=== PATIENT | male | born 1995 | race Caucasian/White ===

== ENCOUNTER 2016-03-24 12:03 | Emergency (ER) | payer OTHER ==
[2016-03-24] MEDS ORDERED: ONDANSETRON 4MG/2ML VIAL (J2405) As Ordered ONE (12:28)
[2016-03-24] MEDS ORDERED: ACETAMINOPHEN 325 MG TAB As Ordered ONE (12:28)
[2016-03-24] MEDS ORDERED: GASTROGRAFIN SOLUTION 30ML (Q9963) As Ordered ONE (12:30)
[2016-03-24 12:59] LABS: BASO # 0.1 K/mm3 (0.0-0.2); BASO % 0.8 % (0.0-1.0); EOS # 0.1 K/mm3 (0.0-0.50); EOS % 0.7 % (0.0-3.0); LARGE UNSTAINED CELL # 0.2 K/mm3 (0.0-0.4); LARGE UNSTAINED CELL % 1.9 % (0.0-4.0); MEAN CORPUSCULAR HEMOGLOBIN 26.4 pg (27.0-33.0); MEAN CORPUSCULAR HGB CONC 34.2 g/dl (32.0-36.5); MEAN CORPUSCULAR VOLUME 77.3 fl (80.0-96.0); MONO # 0.8 K/mm3 (0.0-0.8); MONO % 6.6 % (0.0-5.0); NEUTROPHILS # 10.3 K/mm3 (1.8-7.7); PLATELET COUNT, AUTOMATED 201 k/mm3 (150-450); RED CELL DISTRIBUTION WIDTH 14.9 % (11.5-14.5); WHITE BLOOD COUNT 12.2 K/mm3 (4.0-10.0)
[2016-03-24 13:08] LABS: CONTROL LINE MONO INT CTR LINE PRESENT
[2016-03-24 13:16] LABS: ALBUMIN 3.8 GM/DL (3.2-5.2); ALKALINE PHOSPHATASE 103 U/L (45-117); ALT/SGPT 21 U/L (12-78); ANION GAP 8 MEQ/L (8-16); AST/SGOT 22 U/L (15-37); BILIRUBIN,DIRECT 0.2 MG/DL (0.0-0.2); BILIRUBIN,TOTAL 0.8 MG/DL (0.2-1.0); BLOOD UREA NITROGEN 13 MG/DL (7-18); CALCIUM LEVEL 8.6 MG/DL (8.5-10.1); CARBON DIOXIDE LEVEL 28 MEQ/L (21-32); CHLORIDE LEVEL 102 MEQ/L (98-107); CREATININE FOR GFR 1.42 MG/DL (0.70-1.30); GLUCOSE, FASTING 95 MG/DL (70-105); SODIUM LEVEL 138 MEQ/L (136-145)
[2016-03-24] MEDS ORDERED: ISOVUE-370 76% 100ML VIAL (Q9967) As Ordered ONE (13:51)
--- NOTE | 2016-03-24 16:47 | EDDOCDS ---
Nurse's Notes [facility] Name: Raghu Monique Age: 21 yrs Sex: Male : 1995 Arrival Date: 03/24/2016 Time: 12:03 Bed I9 / Private [facility] Diagnosis: Nausea and vomiting;Diarrhea, unspecified Presentation: 03/24 12:07 Presenting complaint: Patient states: Sore throat, nausea, vomiting and diarrhea, dwg symptoms for 2 days. Adult Sepsis Screening: The patient does not have new or worsening altered mentation. Patient's respiratory rate is less than 22. Systolic blood pressure is greater than 100. Patient has a qSOFA score of 0- Negative Sepsis Screen. Suicide/Homicide risk assessment- the patient denies having any suicidal and/or homicidal ideations and does not present with any other emotional, behavioral or mental health complaints. Status: The patient is an active duty financial services rep. Transition of care: patient was not received from another setting of care. 12:07 Acuity: HERIBERTO Level 3 dwg 12:07 Method Of Arrival: Walkin/Carried/Asstd dwg Triage Assessment: 12:09 General: Appears in no apparent distress. Pain: Pain currently is 8 out of 10 on a pain dwg scale. Pt Declines HIV testing. Historical: - Allergies: no known allergies; - Home Meds: 1. OTC cold meds (Last dose: 03/23/2016 19:00) 2. Advil 200 mg Oral tab 2 tabs as needed (Last dose: 03/24/2016 01:00) - PMHx: none; - PSHx: Repair of testicular torsion 2005; - Social history: Smoking status: Patient states was never smoker of tobacco. No barriers to communication noted, The patient speaks fluent Telugu. - Family history: Not pertinent. - : The pt / caregiver states he / she is not on anticoagulants. Home medication list is obtained from the patient. - Exposure Risk Screening:: None identified. Screenin:09 Screening information is obtained from the patient. Fall risk: No risks identified. ttb Assistance ADL's: requires no assistance with activities of daily living. Abuse/DV Screen: The patient / caregiver reports he/she is: not in a situation that causes fear, pain or injury. Nutritional screening: No deficits noted. Advance Directives: Currently, there is no health care proxy. home support is adequate. Assessment: 13:36 General: pt states he is unable to give urine sample at this time.... ttb 14:09 General: pt returned from CT. NAD noted.. Neurological: Level of Consciousness is ttb awake, alert. Cardiovascular: Chest pain is denied. Respiratory: Airway is patent Respiratory effort is even, unlabored. GI: Abdomen is flat. Derm: Skin is normal. 15:57 General: Appears in no apparent distress, comfortable, well nourished, well groomed, ms18 Behavior is appropriate for age, cooperative, pleasant. General: Pt in no acute distress. Awaiting CT results at this time. Pain: Location: head Pain currently is 4 out of 10 on a pain scale. Neurological: Level of Consciousness is awake, alert, obeys commands, Oriented to person, place, time, Speech is normal, Facial symmetry appears normal. Respiratory: Airway is patent Respiratory effort is even, unlabored. GI: Bowel sounds present X 4 quads. Abd is soft X 4 quads. Derm: Skin is pink, warm & dry. 16:00 Reassessment: Patient appears in no apparent distress at this time. Patient denies pain ttb at this time. Patient states feeling better. Patient states symptoms have improved. pt states he is comfortable going home at this time.. Adult Sepsis Screening: The patient does not have new or worsening altered mentation. Patient's respiratory rate is less than 22. Systolic blood pressure is greater than 100. Patient has a qSOFA score of 0- Negative Sepsis Screen. 16:00 General: Appears in no apparent distress, comfortable. Neurological: Level of ttb Consciousness is awake, alert. 16:44 General: Appears in no apparent distress, comfortable, Behavior is appropriate for age, ttb pleasant. Neurological: Level of Consciousness is awake, alert. Respiratory: No deficits noted. Airway is patent. GI: Denies nausea, vomiting. Vital Signs: 12:04 BP 131 / 78; Pulse 123; Resp 18 S; Temp 101.9(O); Pulse Ox 100% on R/A; Weight 78.47 kg dd6 (R); Height 5 ft. 10 in. (177.80 cm) (R); 15:56 BP 136 / 63; Pulse 78; Resp 20; Temp 99.9(O); Pulse Ox 99% on R/A; Pain 0/10; bnb 12:04 Body Mass Index 24.82 (78.47 kg, 177.80 cm) dd6 Vitals: 12:04 Log In Time: March 24, 2016 at 12:02. dd6 12:59 Strep Screen is obtained and tested: Negative, a GATSNEG culture is ordered in [facility] ms18 and sent. ED Course: 12:04 Patient visited by Iban Oglesby PCA. dd6 12:04 [facility] is Private Physician. dd6 12:04 Patient moved to Waiting dd6 12:06 Patient moved to Pre RCE dd6 12:08 Triage Initiated dwg 12:11 Mynor Mcintyre MD is Attending Physician. br1 12:11 Patient moved to I ct3 12:23 Patient visited by Mynor Mcintyre MD. br1 12:59 Patient visited by Janeen Harkins RN. ms18 13:15 -Influenza A&B Rapid Antigen - Nose Sent. ms18 13:36 Patient visited by Wendy Vazquez RN. ttb 13:55 Patient visited by Barbara Jean Baptiste PCA. bnb 14:01 Patient visited by Barbara Jean Baptiste PCA. bnb 14:01 Urine Culture Sent. bnb 14:01 Urinalysis Sent. bnb 14:01 Urine collected. Clean catch specimen. bnb 14:09 Patient visited by Wendy Vazquez RN. ttb 14:09 The patient / caregiver is instructed regarding the plan of care and ED course. Patient ttb has correct armband on for positive identification. 14:09 Inserted peripheral IV: 20gauge IV in left antecubital area and blood collected. ttb Patient tolerated the procedure well. by Janeen Benitez RN. Labs drawn. (by ED staff). 14:11 Patient visited by Wendy Vazquez RN. ttb 14:26 Patient name changed from Raghu\S\\S\Eneida\S\ to Raghu\S\Kirt\S\Eneida. EDMS 14:27 [id number] Payment Agreement was scanned into [employer] and attached to record. lg 14:45 Patient visited by Kenisha Heaton RN. jjr 15:47 Patient visited by Dominic Landaverde. jml1 15:57 Patient visited by Barbara Jean Baptiste PCA. bnb 16:28 Patient visited by Mynor Mcintyre MD. br1 16:31 [facility] is Referral Physician. br1 16:44 Discontinued IV lock intact, bleeding controlled, pressure dressing applied, No ttb redness/swelling at site. No procedures done that require assistance. Administered Medications: 12:45 Drug: Diatrizoate Meglumine & Sodium 10 ml [diatrizoate meglumine and diat.sodium 66 ms18 %-10 % oral solution (10 mL)] Route: PO; 15:55 Follow up: Response: No Adverse Reaction ms18 12:59 Drug: Acetaminophen 650 mg [acetaminophen 325 mg tablet (2 tabs)] Route: PO; ms18 12:59 Drug: NS 0.9% 1000 ml [sodium chloride 0.9 % intravenous solution] Route: IV; Rate: ms18 bolus; Site: left antecubital; 15:55 Follow up: IV Status: Completed infusion; IV Intake: 1000ml ms18 12:59 Drug: Ondansetron 4 mg [ondansetron HCl 2 mg/mL intravenous solution (2 mL)] Route: ms18 IVP; Site: left antecubital; 16:45 Follow up: Response: Nausea is resolved; No Adverse Reaction ttb 13:15 Drug: Diatrizoate Meglumine & Sodium 10 ml [diatrizoate meglumine and diat.sodium 66 ms18 %-10 % oral solution (10 mL)] Route: PO; 15:56 Follow up: Response: No Adverse Reaction ms18 15:55 Drug: NS 0.9% 1000 ml [sodium chloride 0.9 % intravenous solution] Route: IV; Rate: ms18 bolus; Site: left antecubital; 16:45 Follow up: Response: Nausea is resolved; No Adverse Reaction; IV Status: Completed ttb infusion; IV Intake: 700ml Intake: 15:55 IV: 1000.00ml; Total: 1000.00ml. ms18 16:45 IV: 700.00ml; Total: 1700.00ml. ttb Order Results: Lab Order: CBC with Diff; SPEC'M 03/24/16 12:50 Test: WHITE BLOOD COUNT; Value: 12.2; Range: 4.0-10.0; Abnormal: Above high normal; Units: K/mm3; Status: F Test: RED BLOOD COUNT; Value: 5.48; Range: 4.30-6.10; Units: M/mm3; Status: F Test: HEMOGLOBIN; Value: 14.5; Range: 14.0-18.0; Units: g/dl; Status: F Test: HEMATOCRIT; Value: 42.4; Range: 42.0-52.0; Units: %; Status: F Test: MEAN CORPUSCULAR VOLUME; Value: 77.3; Range: 80.0-96.0; Abnormal: Below low normal; Units: fl; Status: F Test: MEAN CORPUSCULAR HEMOGLOBIN; Value: 26.4; Range: 27.0-33.0; Abnormal: Below low normal; Units: pg; Status: F Test: MEAN CORPUSCULAR HGB CONC; Value: 34.2; Range: 32.0-36.5; Units: g/dl; Status: F Test: RED CELL DISTRIBUTION WIDTH; Value: 14.9; Range: 11.5-14.5; Abnormal: Above high normal; Units: %; Status: F Test: PLATELET COUNT, AUTOMATED; Value: 201; Range: 150-450; Units: k/mm3; Status: F Test: NEUTROPHILS %; Value: 84.0; Range: 36.0-66.0; Abnormal: Above high normal; Units: %; Status: F Test: LYMPH %; Value: 6.0; Range: 24.0-44.0; Abnormal: Below low normal; Units: %; Status: F Test: MONO %; Value: 6.6; Range: 0.0-5.0; Abnormal: Above high normal; Units: %; Status: F Test: EOS %; Value: 0.7; Range: 0.0-3.0; Units: %; Status: F Test: BASO %; Value: 0.8; Range: 0.0-1.0; Units: %; Status: F Test: LARGE UNSTAINED CELL %; Value: 1.9; Range: 0.0-4.0; Units: %; Status: F Test: NEUTROPHILS #; Value: 10.3; Range: 1.8-7.7; Abnormal: Above high normal; Units: K/mm3; Status: F Test: LYMPH #; Value: 1.0; Range: 1.5-6.5; Abnormal: Below low normal; Units: K/mm3; Status: F Test: MONO #; Value: 0.8; Range: 0.0-0.8; Units: K/mm3; Status: F Test: EOS #; Value: 0.1; Range: 0.0-0.50; Units: K/mm3; Status: F Test: BASO #; Value: 0.1; Range: 0.0-0.2; Units: K/mm3; Status: F Test: LARGE UNSTAINED CELL #; Value: 0.2; Range: 0.0-0.4; Units: K/mm3; Status: F Lab Order: BMP; SPEC'M 03/24/16 12:50 Test: GLUCOSE, FASTING; Value: 95; Range: 70-105; Units: MG/DL; Status: F Test: BLOOD UREA NITROGEN; Value: 13; Range: 7-18; Units: MG/DL; Status: F Test: CREATININE FOR GFR; Value: 1.42; Range: 0.70-1.30; Abnormal: Above high normal; Units: MG/DL; Status: F Test: SODIUM LEVEL; Value: 138; Range: 136-145; Units: MEQ/L; Status: F Test: POTASSIUM SERUM; Value: 4.0; Range: 3.5-5.1; Units: MEQ/L; Status: F Test: CHLORIDE LEVEL; Value: 102; Range: 98-107; Units: MEQ/L; Status: F Test: CARBON DIOXIDE LEVEL; Value: 28; Range: 21-32; Units: MEQ/L; Status: F Test: ANION GAP; Value: 8; Range: 8-16; Units: MEQ/L; Status: F Test: CALCIUM LEVEL; Value: 8.6; Range: 8.5-10.1; Units: MG/DL; Status: F Lab Order: Liver Profile; SPEC'M 03/24/16 12:50 Test: AST/SGOT; Value: 22; Range: 15-37; Units: U/L; Status: F Test: ALT/SGPT; Value: 21; Range: 12-78; Units: U/L; Status: F Test: ALKALINE PHOSPHATASE; Value: 103; Range: 45-117; Units: U/L; Status: F Test: BILIRUBIN,TOTAL; Value: 0.8; Range: 0.2-1.0; Units: MG/DL; Status: F Test: BILIRUBIN,DIRECT; Value: 0.2; Range: 0.0-0.2; Units: MG/DL; Status: F Test: TOTAL PROTEIN; Value: 8.0; Range: 6.4-8.2; Units: GM/DL; Status: F Test: ALBUMIN; Value: 3.8; Range: 3.2-5.2; Units: GM/DL; Status: F Test: ALBUMIN/GLOBULIN RATIO; Value: 0.90; Range: 1.00-1.93; Abnormal: Below low normal; Status: F Lab Order: Lipase; SPEC'M 03/24/16 12:50 Test: LIPASE; Value: 96; Range: 73-393; Units: U/L; Status: F Lab Order: Monoscreen; SPEC'M 03/24/16 12:50 Test: MONO SCRN; Value: NEGATIVE; Range: NEGATIVE; Status: F Lab Order: -Influenza A&B Rapid Antigen - Nose; SPEC'M 03/24/16 12:36 Test: INFLUENZA A RAPID SCR by ICA; Value: INFLUENZA A RESULTS NEGATIVE; Status: F Test: INFLUENZA A RAPID SCR by ICA; Value: Comments:; Status: F Test: INFLUENZA B RAPID SCR by ICA; Value: INFLUENZA B RESULTS NEGATIVE; Status: F Test Note: ; The Influenza test is a direct rapid immunoassay for the qualitative detection of Influenza viral antigen. Cell culture (Viral Culture) testing should be considered to confirm NEGATIVE results and to assist in detecting other viruses that can provide similar clinical symptoms. Please contact the lab within 24 hours [phone]) if confirmatory testing is desired. Lab Order: Urinalysis; SPEC'M 03/24/16 13:55 Test: APPEARANCE, URINE; Value: CLEAR; Range: CLEAR; Status: F Test: COLOR, URINE; Value: YELLOW; Range: YELLOW; Status: F Test: PH,URINE; Value: 6.0; Range: 5.0-9.0; Units: UNITS; Status: F Test: SPECIFIC GRAVITY URINE AUTO; Value: 1.012; Range: 1.002-1.035; Status: F Test: PROTEIN, URINE AUTO; Value: NEGATIVE; Range: NEGATIVE; Units: mg/dL; Status: F Test: GLUCOSE, URINE (UA) AUTO; Value: NEGATIVE; Range: NEGATIVE; Units: mg/dL; Status: F Test: KETONE, URINE AUTO; Value: NEGATIVE; Range: NEGATIVE; Units: mg/dL; Status: F Test: UROBILINOGEN, URINE AUTO; Value: 4.0; Range: 0.0-2.0; Abnormal: Above high normal; Units: mg/dL; Status: F Test: BILIRUBIN, URINE AUTO; Value: NEGATIVE; Range: NEGATIVE; Status: F Test: NITRITE, URINE AUTO; Value: NEGATIVE; Range: NEGATIVE; Status: F Test: LEUKOCYTE ESTERASE, URINE AUTO; Value: NEGATIVE; Range: NEGATIVE; Status: F Test: BLOOD, URINE BLOOD; Value: NEGATIVE; Range: NEGATIVE; Status: F Test: WBC, URINE AUTO; Value: 0; Range: 0-3; Units: /HPF; Status: F Test: RBC, URINE AUTO; Value: 1; Range: 0-3; Units: /HPF; Status: F Test: BACTERIA, URINE AUTO; Value: NEGATIVE; Range: NEGATIVE; Status: F Test: SQUAMOUS EPITHELIAL CELL UR AU; Value: 0; Range: 0-6; Units: /HPF; Status: F Test: MUCUS, URINE; Value: SMALL; Range: NEGATIVE; Status: F Test: HYALINE CAST, URINE AUTO; Value: 0; Range: 0-1; Units: /LPF; Status: F Outcome: 14:09 CT Study completed. ttb 15:58 Property :Personal belongings accompany Pt. ms18 16:32 Discharge ordered by Provider. br1 16:44 Discharge Assessment: Patient awake, alert and oriented x 3. No cognitive and/or ttb functional deficits noted. Patient verbalized understanding of disposition instructions. Patient awake and alert. patient administered narcotics - no. The following High Risk Discharge criteria are identified: None. Discharged to home ambulatory. Condition: good Condition: stable Condition: improved. Discharge instructions given to patient, Instructed on discharge instructions, follow up and referral plans. medication usage, diet, Demonstrated understanding of instructions, medications, clear diet, use of tylenol/ibuprofen for fevers. Pt was receptive of discharge instructions/ teaching. Prescriptions given X 1. 16:46 Patient left the ED. ttb Signatures: Dispatcher [employer] EDMS Tariq Kendrick, RN RN dwg Shannon Yeboah, Reg Reg lg Mynor Mcintyre MD MD br1 Kenisha Heaton, RN RN jjIban Kingsley, AIR HAMMER STRIPPER AIR HAMMER STRIPPER dd6 Fournier, Becky, AIR HAMMER STRIPPER AIR HAMMER STRIPPER ct3 Dominic Landaverde jml1 Wendy Vazquez, ELAINA DELANEY ttb Janeen Harkins,ELAINA RN ms18 Barbara Jean Baptiste, AIR HAMMER STRIPPER AIR HAMMER STRIPPER bnb MTDD
--- NOTE | 2016-03-24 16:47 | EDDOCDS ---
Physician Documentation [facility] Name: Raghu Monique Age: 21 yrs Sex: Male : 1995 Arrival Date: 03/24/2016 Time: 12:03 Bed I9 / Private [facility] Disposition: 03/24/16 16:32 Discharged to Home/Self Care. Impression: Nausea and vomiting, Diarrhea, unspecified. - Condition is Stable. - Discharge Instructions: Diarrhea, Fever, Adult, Nausea and Vomiting. - Prescriptions for ZOFRAN ODT 4 mg - dissolve 1 tablet by ORAL route 4 times per day As needed do not chew, do not swallow whole; 10 tablet. - Medication Reconciliation, Local Pharmacy Hours form. - [facility]; When: 2 - 3 days; Reason: Recheck today's complaints. - Problem is new. - Symptoms have improved. - Notes: You were seen in the ED for nausea, vomiting and diarrhea. Bloodwork showed slightly elevated white blood cell count but no other acute findings. Chest Xray along with CT scan of the abdomen showed no acute findings as well. You were treated and imrpoved with medication and fluids in the ED as well. As you are feeling better you may return home to continue Tylenol and Ibuprofen as needed for pain or fever, encouraging plenty of clear liquids, and advancing your diet as tolerated. You may take Zofran as needed for nausea. Call your primary doctor as [facility] to arrange to be seen for recheck this week as well.
Return to the ED for any inability to tolerate fluids, worse pain, uncontrolled fever, or any other concerns. Historical: - Allergies: no known allergies; - Home Meds: 1. OTC cold meds (Last dose: 03/23/2016 19:00) 2. Advil 200 mg Oral tab 2 tabs as needed (Last dose: 03/24/2016 01:00) - PMHx: none; - PSHx: Repair of testicular torsion 2005; - Social history: Smoking status: Patient states was never smoker of tobacco. No barriers to communication noted, The patient speaks fluent South Korean. - Family history: Not pertinent. - : The pt / caregiver states he / she is not on anticoagulants. Home medication list is obtained from the patient. - Exposure Risk Screening:: None identified. Vital Signs: 03/24 12:04 BP 131 / 78; Pulse 123; Resp 18 S; Temp 101.9(O); Pulse Ox 100% on R/A; Weight 78.47 kg dd6 / 173 lbs (R); Height 5 ft. 10 in. (177.80 cm) (R); 15:56 BP 136 / 63; Pulse 78; Resp 20; Temp 99.9(O); Pulse Ox 99% on R/A; Pain 0/10; bnb 12:04 Body Mass Index 24.82 (78.47 kg, 177.80 cm) dd6 MDM: 12:09 Strep Screen, Nursing ordered. dt4 12:23 Acetaminophen Tablet 650 mg PO once ordered. br1 12:24 IV Saline Lock ordered. br1 12:24 NS 0.9% 1000 ml IV at bolus once ordered. br1 12:24 Ondansetron 4 mg IVP once ordered. br1 12:25 CBC with Diff Ordered. EDMS 12:25 BMP Ordered. EDMS 12:25 Liver Profile Ordered. EDMS 12:25 Lipase Ordered. EDMS 12:25 Monoscreen Ordered. EDMS 12:25 -Influenza A&B Rapid Antigen - Nose Ordered. EDMS 12:26 Chest, 2 View (pa\E\lat) Ordered. EDMS 12:26 CT ABD & PELVIS: IV and Oral Contrast Ordered. EDMS 12:29 GASTROINTESTINAL (GI) PANEL Ordered. EDMS 12:29 Urinalysis Ordered. EDMS 12:29 Urine Culture Ordered. EDMS 13:00 GATS (NEGATIVE STREP SCREEN) Ordered. EDMS 13:00 Diatrizoate Meglumine & Sodium Liquid 10 ml PO once; mix in 290cc of water, give at ms18 1245 ordered. 13:00 Diatrizoate Meglumine & Sodium Liquid 10 ml PO once; mix in 290cc of water, give at ms18 1315 ordered. 13:22 CBC with Diff Reviewed. br1 13:22 BMP Reviewed. br1 13:22 Liver Profile Reviewed. br1 13:22 Lipase Reviewed. br1 13:22 Monoscreen Reviewed. br1 13:46 Financial registration complete. lg 14:00 -Influenza A&B Rapid Antigen - Nose Reviewed. br1 14:27 [facility] Payment Agreement was scanned into [employer] and attached to record. lg 15:49 Recheck Vital Signs, perform reassessment and enter into [employer] ordered. br1 15:49 NS 0.9% 1000 ml IV at bolus once ordered. br1 15:49 Urinalysis Reviewed. br1 Administered Medications: 12:45 Drug: Diatrizoate Meglumine & Sodium 10 ml [diatrizoate meglumine and diat.sodium 66 ms18 %-10 % oral solution (10 mL)] Route: PO; 15:55 Follow up: Response: No Adverse Reaction ms18 12:59 Drug: Acetaminophen 650 mg [acetaminophen 325 mg tablet (2 tabs)] Route: PO; ms18 12:59 Drug: NS 0.9% 1000 ml [sodium chloride 0.9 % intravenous solution] Route: IV; Rate: ms18 bolus; Site: left antecubital; 15:55 Follow up: IV Status: Completed infusion; IV Intake: 1000ml ms18 12:59 Drug: Ondansetron 4 mg [ondansetron HCl 2 mg/mL intravenous solution (2 mL)] Route: ms18 IVP; Site: left antecubital; 16:45 Follow up: Response: Nausea is resolved; No Adverse Reaction ttb 13:15 Drug: Diatrizoate Meglumine & Sodium 10 ml [diatrizoate meglumine and diat.sodium 66 ms18 %-10 % oral solution (10 mL)] Route: PO; 15:56 Follow up: Response: No Adverse Reaction ms18 15:55 Drug: NS 0.9% 1000 ml [sodium chloride 0.9 % intravenous solution] Route: IV; Rate: ms18 bolus; Site: left antecubital; 16:45 Follow up: Response: Nausea is resolved; No Adverse Reaction; IV Status: Completed ttb infusion; IV Intake: 700ml Signatures: Dispatcher [employer] EDUT Tariq Kendrick RN RN dwg Shannon Yeboah, Lucho Reg Mynor Mcintyre MD MD br1 Wendy Vazquez RN RN ttb Vannessa Humphries, PAKodyC PA-Madai dt4 Janeen Harkins RN RN ms18 The chart was reviewed and I authenticate all verbal orders and agree with the evaluation and treatment provided.Corrections: (The following items were deleted from the chart) 12:28 12:27 GASTROINTESTINAL (GI) PANEL+GRECIA ordered. EDUT EDMS Attachments: 14:27 [facility] Payment Agreement lg MTDD
--- NOTE | 2016-03-26 11:02 | REP ---
PA and lateral chest: There are no comparisons. The lung thorpe are clear. The cardiac size is normal The alfredo, mediastinum, and bony thorax are unremarkable. Impression: Negative PA and lateral chest. Signed by Tariq Sagastume MD 03/24/2016 01:41 P
--- NOTE | 2016-03-26 11:03 | REP ---
CT abdomen and pelvis with IV and oral contrast: There are no comparison studies. The visualized lung thorpe are unremarkable. The hepatic parenchyma, gallbladder, pancreas and spleen are homogeneous, normal size and unremarkable. The adrenals, kidneys and abdominal aorta are unremarkable. There is no hydronephrosis. There is no bowel distension. Pelvis: The appendix is not identified. However, there is no pericecal inflammation. The bladder is unremarkable. There is no ascites or adenopathy. The pelvic bowel loops are unremarkable. Impression: Essentially negative CT study of the abdomen and pelvis. Signed by Tariq Sagastume MD 03/24/2016 04:07 P
--- NOTE | 2016-03-26 17:47 | EDDOCDS ---
Physician Documentation [facility] Name: Raghu Monique Age: 21 yrs Sex: Male : 1995 Arrival Date: 03/24/2016 Time: 12:03 Bed I9 / Private [facility] Disposition: 03/24/16 16:32 Discharged to Home/Self Care. Impression: Nausea and vomiting, Diarrhea, unspecified. - Condition is Stable. - Discharge Instructions: Diarrhea, Fever, Adult, Nausea and Vomiting. - Prescriptions for ZOFRAN ODT 4 mg - dissolve 1 tablet by ORAL route 4 times per day As needed do not chew, do not swallow whole; 10 tablet. - Medication Reconciliation, Local Pharmacy Hours form. - [facility]; When: 2 - 3 days; Reason: Recheck today's complaints. - Problem is new. - Symptoms have improved. - Notes: You were seen in the ED for nausea, vomiting and diarrhea. Bloodwork showed slightly elevated white blood cell count but no other acute findings. Chest Xray along with CT scan of the abdomen showed no acute findings as well. You were treated and imrpoved with medication and fluids in the ED as well. As you are feeling better you may return home to continue Tylenol and Ibuprofen as needed for pain or fever, encouraging plenty of clear liquids, and advancing your diet as tolerated. You may take Zofran as needed for nausea. Call your primary doctor as [facility] to arrange to be seen for recheck this week as well.
Return to the ED for any inability to tolerate fluids, worse pain, uncontrolled fever, or any other concerns. Historical: - Allergies: no known allergies; - Home Meds: 1. OTC cold meds (Last dose: 03/23/2016 19:00) 2. Advil 200 mg Oral tab 2 tabs as needed (Last dose: 03/24/2016 01:00) - PMHx: none; - PSHx: Repair of testicular torsion 2005; - Social history: Smoking status: Patient states was never smoker of tobacco. No barriers to communication noted, The patient speaks fluent [place]. - Family history: Not pertinent. - : The pt / caregiver states he / she is not on anticoagulants. Home medication list is obtained from the patient. - Exposure Risk Screening:: None identified. Vital Signs: 03/24 12:04 BP 131 / 78; Pulse 123; Resp 18 S; Temp 101.9(O); Pulse Ox 100% on R/A; Weight 78.47 kg dd6 / 173 lbs (R); Height 5 ft. 10 in. (177.80 cm) (R); 15:56 BP 136 / 63; Pulse 78; Resp 20; Temp 99.9(O); Pulse Ox 99% on R/A; Pain 0/10; bnb 12:04 Body Mass Index 24.82 (78.47 kg, 177.80 cm) dd6 MDM: 12:09 Strep Screen, Nursing ordered. dt4 12:23 Acetaminophen Tablet 650 mg PO once ordered. br1 12:24 IV Saline Lock ordered. br1 12:24 NS 0.9% 1000 ml IV at bolus once ordered. br1 12:24 Ondansetron 4 mg IVP once ordered. br1 12:25 CBC with Diff Ordered. EDMS 12:25 BMP Ordered. EDMS 12:25 Liver Profile Ordered. EDMS 12:25 Lipase Ordered. EDMS 12:25 Monoscreen Ordered. EDMS 12:25 -Influenza A&B Rapid Antigen - Nose Ordered. EDMS 12:26 Chest, 2 View (pa\E\lat) Ordered. EDMS 12:26 CT ABD & PELVIS: IV and Oral Contrast Ordered. EDMS 12:29 GASTROINTESTINAL (GI) PANEL Ordered. EDMS 12:29 Urinalysis Ordered. EDMS 12:29 Urine Culture Ordered. EDMS 13:00 GATS (NEGATIVE STREP SCREEN) Ordered. EDMS 13:00 Diatrizoate Meglumine & Sodium Liquid 10 ml PO once; mix in 290cc of water, give at ms18 1245 ordered. 13:00 Diatrizoate Meglumine & Sodium Liquid 10 ml PO once; mix in 290cc of water, give at ms18 1315 ordered. 13:22 CBC with Diff Reviewed. br1 13:22 BMP Reviewed. br1 13:22 Liver Profile Reviewed. br1 13:22 Lipase Reviewed. br1 13:22 Monoscreen Reviewed. br1 13:46 Financial registration complete. lg 14:00 -Influenza A&B Rapid Antigen - Nose Reviewed. br1 14:27 [facility] Payment Agreement was scanned into [employer] and attached to record. lg 15:49 Recheck Vital Signs, perform reassessment and enter into [employer] ordered. br1 15:49 NS 0.9% 1000 ml IV at bolus once ordered. br1 15:49 Urinalysis Reviewed. br1 03/25 21:44 T-Sheet-- Draft Copy was scanned into [employer] and attached to record. klr Administered Medications: 03/24 12:45 Drug: Diatrizoate Meglumine & Sodium 10 ml [diatrizoate meglumine and diat.sodium 66 ms18 %-10 % oral solution (10 mL)] Route: PO; 15:55 Follow up: Response: No Adverse Reaction ms18 12:59 Drug: Acetaminophen 650 mg [acetaminophen 325 mg tablet (2 tabs)] Route: PO; ms18 12:59 Drug: NS 0.9% 1000 ml [sodium chloride 0.9 % intravenous solution] Route: IV; Rate: ms18 bolus; Site: left antecubital; 15:55 Follow up: IV Status: Completed infusion; IV Intake: 1000ml ms18 12:59 Drug: Ondansetron 4 mg [ondansetron HCl 2 mg/mL intravenous solution (2 mL)] Route: ms18 IVP; Site: left antecubital; 16:45 Follow up: Response: Nausea is resolved; No Adverse Reaction ttb 13:15 Drug: Diatrizoate Meglumine & Sodium 10 ml [diatrizoate meglumine and diat.sodium 66 ms18 %-10 % oral solution (10 mL)] Route: PO; 15:56 Follow up: Response: No Adverse Reaction ms18 15:55 Drug: NS 0.9% 1000 ml [sodium chloride 0.9 % intravenous solution] Route: IV; Rate: ms18 bolus; Site: left antecubital; 16:45 Follow up: Response: Nausea is resolved; No Adverse Reaction; IV Status: Completed ttb infusion; IV Intake: 700ml Signatures: Dispatcher [employer] EDTariq Elizalde RN RN dwg Ganter, LoriLee, Reg Reg lg Roggie, Brian, MD MD br1 Wendy Vazquez RN RN ttb Vannessa Humphries, PAKodyC PA-C dt4 Janeen Harkins RN RN ms18 Preeti Hummel klr The chart was reviewed and I authenticate all verbal orders and agree with the evaluation and treatment provided.Corrections: (The following items were deleted from the chart) 12:28 12:27 GASTROINTESTINAL (GI) PANEL+GRECIA ordered. EDMS EDMS Attachments: 14:27 [facility] Payment Agreement lg 03/25 21:44 T-Sheet-- Draft Copy klr Chart Complete MTDD
--- NOTE | 2016-03-26 17:47 | EDDOCDS ---
Physician Documentation [facility] Name: Raghu Monique Age: 21 yrs Sex: Male : 1995 Arrival Date: 03/24/2016 Time: 12:03 Bed I9 / [facility] Disposition: 03/24/16 16:32 Discharged to Home/Self Care. Impression: Nausea and vomiting, Diarrhea, unspecified. - Condition is Stable. - Discharge Instructions: Diarrhea, Fever, Adult, Nausea and Vomiting. - Prescriptions for ZOFRAN ODT 4 mg - dissolve 1 tablet by ORAL route 4 times per day As needed do not chew, do not swallow whole; 10 tablet. - Medication Reconciliation, Local Pharmacy Hours form. - [facility]; When: 2 - 3 days; Reason: Recheck today's complaints. - Problem is new. - Symptoms have improved. - Notes: You were seen in the ED for nausea, vomiting and diarrhea. Bloodwork showed slightly elevated white blood cell count but no other acute findings. Chest Xray along with CT scan of the abdomen showed no acute findings as well. You were treated and imrpoved with medication and fluids in the ED as well. As you are feeling better you may return home to continue Tylenol and Ibuprofen as needed for pain or fever, encouraging plenty of clear liquids, and advancing your diet as tolerated. You may take Zofran as needed for nausea. Call your primary doctor as [facility] to arrange to be seen for recheck this week as well.
Return to the ED for any inability to tolerate fluids, worse pain, uncontrolled fever, or any other concerns. Historical: - Allergies: no known allergies; - Home Meds: 1. OTC cold meds (Last dose: 03/23/2016 19:00) 2. Advil 200 mg Oral tab 2 tabs as needed (Last dose: 03/24/2016 01:00) - PMHx: none; - PSHx: Repair of testicular torsion 2005; - Social history: Smoking status: Patient states was never smoker of tobacco. No barriers to communication noted, The patient speaks fluent [place]. - Family history: Not pertinent. - : The pt / caregiver states he / she is not on anticoagulants. Home medication list is obtained from the patient. - Exposure Risk Screening:: None identified. Vital Signs: 03/24 12:04 BP 131 / 78; Pulse 123; Resp 18 S; Temp 101.9(O); Pulse Ox 100% on R/A; Weight 78.47 kg dd6 / 173 lbs (R); Height 5 ft. 10 in. (177.80 cm) (R); 15:56 BP 136 / 63; Pulse 78; Resp 20; Temp 99.9(O); Pulse Ox 99% on R/A; Pain 0/10; bnb 12:04 Body Mass Index 24.82 (78.47 kg, 177.80 cm) dd6 MDM: 12:09 Strep Screen, Nursing ordered. dt4 12:23 Acetaminophen Tablet 650 mg PO once ordered. br1 12:24 IV Saline Lock ordered. br1 12:24 NS 0.9% 1000 ml IV at bolus once ordered. br1 12:24 Ondansetron 4 mg IVP once ordered. br1 12:25 CBC with Diff Ordered. EDMS 12:25 BMP Ordered. EDMS 12:25 Liver Profile Ordered. EDMS 12:25 Lipase Ordered. EDMS 12:25 Monoscreen Ordered. EDMS 12:25 -Influenza A&B Rapid Antigen - Nose Ordered. EDMS 12:26 Chest, 2 View (pa\E\lat) Ordered. EDMS 12:26 CT ABD & PELVIS: IV and Oral Contrast Ordered. EDMS 12:29 GASTROINTESTINAL (GI) PANEL Ordered. EDMS 12:29 Urinalysis Ordered. EDMS 12:29 Urine Culture Ordered. EDMS 13:00 GATS (NEGATIVE STREP SCREEN) Ordered. EDMS 13:00 Diatrizoate Meglumine & Sodium Liquid 10 ml PO once; mix in 290cc of water, give at ms18 1245 ordered. 13:00 Diatrizoate Meglumine & Sodium Liquid 10 ml PO once; mix in 290cc of water, give at ms18 1315 ordered. 13:22 CBC with Diff Reviewed. br1 13:22 BMP Reviewed. br1 13:22 Liver Profile Reviewed. br1 13:22 Lipase Reviewed. br1 13:22 Monoscreen Reviewed. br1 13:46 Financial registration complete. lg 14:00 -Influenza A&B Rapid Antigen - Nose Reviewed. br1 14:27 [facility] Payment Agreement was scanned into [employer] and attached to record. lg 15:49 Recheck Vital Signs, perform reassessment and enter into [employer] ordered. br1 15:49 NS 0.9% 1000 ml IV at bolus once ordered. br1 15:49 Urinalysis Reviewed. br1 03/25 21:44 T-Sheet-- Draft Copy was scanned into [employer] and attached to record. klr Administered Medications: 03/24 12:45 Drug: Diatrizoate Meglumine & Sodium 10 ml [diatrizoate meglumine and diat.sodium 66 ms18 %-10 % oral solution (10 mL)] Route: PO; 15:55 Follow up: Response: No Adverse Reaction ms18 12:59 Drug: Acetaminophen 650 mg [acetaminophen 325 mg tablet (2 tabs)] Route: PO; ms18 12:59 Drug: NS 0.9% 1000 ml [sodium chloride 0.9 % intravenous solution] Route: IV; Rate: ms18 bolus; Site: left antecubital; 15:55 Follow up: IV Status: Completed infusion; IV Intake: 1000ml ms18 12:59 Drug: Ondansetron 4 mg [ondansetron HCl 2 mg/mL intravenous solution (2 mL)] Route: ms18 IVP; Site: left antecubital; 16:45 Follow up: Response: Nausea is resolved; No Adverse Reaction ttb 13:15 Drug: Diatrizoate Meglumine & Sodium 10 ml [diatrizoate meglumine and diat.sodium 66 ms18 %-10 % oral solution (10 mL)] Route: PO; 15:56 Follow up: Response: No Adverse Reaction ms18 15:55 Drug: NS 0.9% 1000 ml [sodium chloride 0.9 % intravenous solution] Route: IV; Rate: ms18 bolus; Site: left antecubital; 16:45 Follow up: Response: Nausea is resolved; No Adverse Reaction; IV Status: Completed ttb infusion; IV Intake: 700ml Signatures: Dispatcher [employer] EDTariq Elizalde RN RN dwg Ganter, LoriLee, Reg Reg lg Roggie, Brian, MD MD br1 Wendy Vazquez RN RN ttb Vannessa Humphries, PAKodyC PA-C dt4 Janeen Harkins RN RN ms18 Preeti Hummel klr The chart was reviewed and I authenticate all verbal orders and agree with the evaluation and treatment provided.Corrections: (The following items were deleted from the chart) 12:28 12:27 GASTROINTESTINAL (GI) PANEL+GRECIA ordered. EDMS EDMS Attachments: 14:27 [facility] Payment Agreement lg 03/25 21:44 T-Sheet-- Draft Copy klr Chart Complete MTDD
--- NOTE | 2016-03-26 17:47 | EDDOCDS ---
Nurse's Notes [facility] Name: aRghu Monique Age: 21 yrs Sex: Male : 1995 Arrival Date: 03/24/2016 Time: 12:03 Bed I9 / [facility] Diagnosis: Nausea and vomiting;Diarrhea, unspecified Presentation: 03/24 12:07 Presenting complaint: Patient states: Sore throat, nausea, vomiting and diarrhea, dwg symptoms for 2 days. Adult Sepsis Screening: The patient does not have new or worsening altered mentation. Patient's respiratory rate is less than 22. Systolic blood pressure is greater than 100. Patient has a qSOFA score of 0- Negative Sepsis Screen. Suicide/Homicide risk assessment- the patient denies having any suicidal and/or homicidal ideations and does not present with any other emotional, behavioral or mental health complaints. Status: The patient is an active duty dispatcher service or work. Transition of care: patient was not received from another setting of care. 12:07 Acuity: HERIBERTO Level 3 dwg 12:07 Method Of Arrival: Walkin/Carried/Asstd dwg Triage Assessment: 12:09 General: Appears in no apparent distress. Pain: Pain currently is 8 out of 10 on a pain dwg scale. Pt Declines HIV testing. Historical: - Allergies: no known allergies; - Home Meds: 1. OTC cold meds (Last dose: 03/23/2016 19:00) 2. Advil 200 mg Oral tab 2 tabs as needed (Last dose: 03/24/2016 01:00) - PMHx: none; - PSHx: Repair of testicular torsion 2005; - Social history: Smoking status: Patient states was never smoker of tobacco. No barriers to communication noted, The patient speaks fluent Yi. - Family history: Not pertinent. - : The pt / caregiver states he / she is not on anticoagulants. Home medication list is obtained from the patient. - Exposure Risk Screening:: None identified. Screenin:09 Screening information is obtained from the patient. Fall risk: No risks identified. ttb Assistance ADL's: requires no assistance with activities of daily living. Abuse/DV Screen: The patient / caregiver reports he/she is: not in a situation that causes fear, pain or injury. Nutritional screening: No deficits noted. Advance Directives: Currently, there is no health care proxy. home support is adequate. Assessment: 13:36 General: pt states he is unable to give urine sample at this time.... ttb 14:09 General: pt returned from CT. NAD noted.. Neurological: Level of Consciousness is ttb awake, alert. Cardiovascular: Chest pain is denied. Respiratory: Airway is patent Respiratory effort is even, unlabored. GI: Abdomen is flat. Derm: Skin is normal. 15:57 General: Appears in no apparent distress, comfortable, well nourished, well groomed, ms18 Behavior is appropriate for age, cooperative, pleasant. General: Pt in no acute distress. Awaiting CT results at this time. Pain: Location: head Pain currently is 4 out of 10 on a pain scale. Neurological: Level of Consciousness is awake, alert, obeys commands, Oriented to person, place, time, Speech is normal, Facial symmetry appears normal. Respiratory: Airway is patent Respiratory effort is even, unlabored. GI: Bowel sounds present X 4 quads. Abd is soft X 4 quads. Derm: Skin is pink, warm & dry. 16:00 Reassessment: Patient appears in no apparent distress at this time. Patient denies pain ttb at this time. Patient states feeling better. Patient states symptoms have improved. pt states he is comfortable going home at this time.. Adult Sepsis Screening: The patient does not have new or worsening altered mentation. Patient's respiratory rate is less than 22. Systolic blood pressure is greater than 100. Patient has a qSOFA score of 0- Negative Sepsis Screen. 16:00 General: Appears in no apparent distress, comfortable. Neurological: Level of ttb Consciousness is awake, alert. 16:44 General: Appears in no apparent distress, comfortable, Behavior is appropriate for age, ttb pleasant. Neurological: Level of Consciousness is awake, alert. Respiratory: No deficits noted. Airway is patent. GI: Denies nausea, vomiting. Vital Signs: 12:04 BP 131 / 78; Pulse 123; Resp 18 S; Temp 101.9(O); Pulse Ox 100% on R/A; Weight 78.47 kg dd6 (R); Height 5 ft. 10 in. (177.80 cm) (R); 15:56 BP 136 / 63; Pulse 78; Resp 20; Temp 99.9(O); Pulse Ox 99% on R/A; Pain 0/10; bnb 12:04 Body Mass Index 24.82 (78.47 kg, 177.80 cm) dd6 Vitals: 12:04 Log In Time: March 24, 2016 at 12:02. dd6 12:59 Strep Screen is obtained and tested: Negative, a GATSNEG culture is ordered in [facility] ms18 and sent. ED Course: 12:04 Patient visited by Iban Oglesby PCA. dd6 12:04 [facility] is Private Physician. dd6 12:04 Patient moved to Waiting dd6 12:06 Patient moved to Pre RCE dd6 12:08 Triage Initiated dwg 12:11 Mynor Mcintyre MD is Attending Physician. br1 12:11 Patient moved to I ct3 12:23 Patient visited by Mynor Mcintyre MD. br1 12:59 Patient visited by Janeen Harkins RN. ms18 13:15 -Influenza A&B Rapid Antigen - Nose Sent. ms18 13:36 Patient visited by Wendy Vazquez RN. ttb 13:55 Patient visited by Barbara Jean Baptiste PCA. bnb 14:01 Patient visited by Barbara Jean Baptiste PCA. bnb 14:01 Urine Culture Sent. bnb 14:01 Urinalysis Sent. bnb 14:01 Urine collected. Clean catch specimen. bnb 14:09 Patient visited by Wendy Vazquez RN. ttb 14:09 The patient / caregiver is instructed regarding the plan of care and ED course. Patient ttb has correct armband on for positive identification. 14:09 Inserted peripheral IV: 20gauge IV in left antecubital area and blood collected. ttb Patient tolerated the procedure well. by Janeen Benitez RN. Labs drawn. (by ED staff). 14:11 Patient visited by Wendy Vazquez RN. ttb 14:26 Patient name changed from Raghu\S\\S\Eneida\S\ to Raghu\S\Kirt\S\Eneida. EDMS 14:27 [facility] Payment Agreement was scanned into [employer] and attached to record. lg 14:45 Patient visited by Kenisha Heaton RN. jjr 15:47 Patient visited by Dominic Landaverde. jml1 15:57 Patient visited by Barbara Jean Baptiste PCA. bnb 16:28 Patient visited by Mynor Mcintyre MD. br1 16:31 [facility] is Referral Physician. br1 16:44 Discontinued IV lock intact, bleeding controlled, pressure dressing applied, No ttb redness/swelling at site. No procedures done that require assistance. 03/25 21:44 T-Sheet-- Draft Copy was scanned into [employer] and attached to record. klr 03/26 11:18 Chest, 2 View (pa\E\lat) Returned. EDMS 11:18 CT ABD & PELVIS: IV and Oral Contrast Returned. EDMS Administered Medications: 03/24 12:45 Drug: Diatrizoate Meglumine & Sodium 10 ml [diatrizoate meglumine and diat.sodium 66 ms18 %-10 % oral solution (10 mL)] Route: PO; 15:55 Follow up: Response: No Adverse Reaction ms18 12:59 Drug: Acetaminophen 650 mg [acetaminophen 325 mg tablet (2 tabs)] Route: PO; ms18 12:59 Drug: NS 0.9% 1000 ml [sodium chloride 0.9 % intravenous solution] Route: IV; Rate: ms18 bolus; Site: left antecubital; 15:55 Follow up: IV Status: Completed infusion; IV Intake: 1000ml ms18 12:59 Drug: Ondansetron 4 mg [ondansetron HCl 2 mg/mL intravenous solution (2 mL)] Route: ms18 IVP; Site: left antecubital; 16:45 Follow up: Response: Nausea is resolved; No Adverse Reaction ttb 13:15 Drug: Diatrizoate Meglumine & Sodium 10 ml [diatrizoate meglumine and diat.sodium 66 ms18 %-10 % oral solution (10 mL)] Route: PO; 15:56 Follow up: Response: No Adverse Reaction ms18 15:55 Drug: NS 0.9% 1000 ml [sodium chloride 0.9 % intravenous solution] Route: IV; Rate: ms18 bolus; Site: left antecubital; 16:45 Follow up: Response: Nausea is resolved; No Adverse Reaction; IV Status: Completed ttb infusion; IV Intake: 700ml Intake: 15:55 IV: 1000.00ml; Total: 1000.00ml. ms18 16:45 IV: 700.00ml; Total: 1700.00ml. ttb Order Results: Lab Order: CBC with Diff; SPEC'M 03/24/16 12:50 Test: WHITE BLOOD COUNT; Value: 12.2; Range: 4.0-10.0; Abnormal: Above high normal; Units: K/mm3; Status: F Test: RED BLOOD COUNT; Value: 5.48; Range: 4.30-6.10; Units: M/mm3; Status: F Test: HEMOGLOBIN; Value: 14.5; Range: 14.0-18.0; Units: g/dl; Status: F Test: HEMATOCRIT; Value: 42.4; Range: 42.0-52.0; Units: %; Status: F Test: MEAN CORPUSCULAR VOLUME; Value: 77.3; Range: 80.0-96.0; Abnormal: Below low normal; Units: fl; Status: F Test: MEAN CORPUSCULAR HEMOGLOBIN; Value: 26.4; Range: 27.0-33.0; Abnormal: Below low normal; Units: pg; Status: F Test: MEAN CORPUSCULAR HGB CONC; Value: 34.2; Range: 32.0-36.5; Units: g/dl; Status: F Test: RED CELL DISTRIBUTION WIDTH; Value: 14.9; Range: 11.5-14.5; Abnormal: Above high normal; Units: %; Status: F Test: PLATELET COUNT, AUTOMATED; Value: 201; Range: 150-450; Units: k/mm3; Status: F Test: NEUTROPHILS %; Value: 84.0; Range: 36.0-66.0; Abnormal: Above high normal; Units: %; Status: F Test: LYMPH %; Value: 6.0; Range: 24.0-44.0; Abnormal: Below low normal; Units: %; Status: F Test: MONO %; Value: 6.6; Range: 0.0-5.0; Abnormal: Above high normal; Units: %; Status: F Test: EOS %; Value: 0.7; Range: 0.0-3.0; Units: %; Status: F Test: BASO %; Value: 0.8; Range: 0.0-1.0; Units: %; Status: F Test: LARGE UNSTAINED CELL %; Value: 1.9; Range: 0.0-4.0; Units: %; Status: F Test: NEUTROPHILS #; Value: 10.3; Range: 1.8-7.7; Abnormal: Above high normal; Units: K/mm3; Status: F Test: LYMPH #; Value: 1.0; Range: 1.5-6.5; Abnormal: Below low normal; Units: K/mm3; Status: F Test: MONO #; Value: 0.8; Range: 0.0-0.8; Units: K/mm3; Status: F Test: EOS #; Value: 0.1; Range: 0.0-0.50; Units: K/mm3; Status: F Test: BASO #; Value: 0.1; Range: 0.0-0.2; Units: K/mm3; Status: F Test: LARGE UNSTAINED CELL #; Value: 0.2; Range: 0.0-0.4; Units: K/mm3; Status: F Lab Order: BMP; SPEC'M 03/24/16 12:50 Test: GLUCOSE, FASTING; Value: 95; Range: 70-105; Units: MG/DL; Status: F Test: BLOOD UREA NITROGEN; Value: 13; Range: 7-18; Units: MG/DL; Status: F Test: CREATININE FOR GFR; Value: 1.42; Range: 0.70-1.30; Abnormal: Above high normal; Units: MG/DL; Status: F Test: SODIUM LEVEL; Value: 138; Range: 136-145; Units: MEQ/L; Status: F Test: POTASSIUM SERUM; Value: 4.0; Range: 3.5-5.1; Units: MEQ/L; Status: F Test: CHLORIDE LEVEL; Value: 102; Range: 98-107; Units: MEQ/L; Status: F Test: CARBON DIOXIDE LEVEL; Value: 28; Range: 21-32; Units: MEQ/L; Status: F Test: ANION GAP; Value: 8; Range: 8-16; Units: MEQ/L; Status: F Test: CALCIUM LEVEL; Value: 8.6; Range: 8.5-10.1; Units: MG/DL; Status: F Lab Order: Liver Profile; SPEC'M 03/24/16 12:50 Test: AST/SGOT; Value: 22; Range: 15-37; Units: U/L; Status: F Test: ALT/SGPT; Value: 21; Range: 12-78; Units: U/L; Status: F Test: ALKALINE PHOSPHATASE; Value: 103; Range: 45-117; Units: U/L; Status: F Test: BILIRUBIN,TOTAL; Value: 0.8; Range: 0.2-1.0; Units: MG/DL; Status: F Test: BILIRUBIN,DIRECT; Value: 0.2; Range: 0.0-0.2; Units: MG/DL; Status: F Test: TOTAL PROTEIN; Value: 8.0; Range: 6.4-8.2; Units: GM/DL; Status: F Test: ALBUMIN; Value: 3.8; Range: 3.2-5.2; Units: GM/DL; Status: F Test: ALBUMIN/GLOBULIN RATIO; Value: 0.90; Range: 1.00-1.93; Abnormal: Below low normal; Status: F Lab Order: Lipase; SPEC'M 03/24/16 12:50 Test: LIPASE; Value: 96; Range: 73-393; Units: U/L; Status: F Lab Order: Monoscreen; SPEC'M 03/24/16 12:50 Test: MONO SCRN; Value: NEGATIVE; Range: NEGATIVE; Status: F Lab Order: -Influenza A&B Rapid Antigen - Nose; SPEC'M 03/24/16 12:36 Test: INFLUENZA A RAPID SCR by ICA; Value: INFLUENZA A RESULTS NEGATIVE; Status: F Test: INFLUENZA A RAPID SCR by ICA; Value: Comments:; Status: F Test: INFLUENZA B RAPID SCR by ICA; Value: INFLUENZA B RESULTS NEGATIVE; Status: F Test Note: ; The Influenza test is a direct rapid immunoassay for the qualitative detection of Influenza viral antigen. Cell culture (Viral Culture) testing should be considered to confirm NEGATIVE results and to assist in detecting other viruses that can provide similar clinical symptoms. Please contact the lab within 24 [phone] if confirmatory testing is desired. Lab Order: Urinalysis; SPEC'M 03/24/16 13:55 Test: APPEARANCE, URINE; Value: CLEAR; Range: CLEAR; Status: F Test: COLOR, URINE; Value: YELLOW; Range: YELLOW; Status: F Test: PH,URINE; Value: 6.0; Range: 5.0-9.0; Units: UNITS; Status: F Test: SPECIFIC GRAVITY URINE AUTO; Value: 1.012; Range: 1.002-1.035; Status: F Test: PROTEIN, URINE AUTO; Value: NEGATIVE; Range: NEGATIVE; Units: mg/dL; Status: F Test: GLUCOSE, URINE (UA) AUTO; Value: NEGATIVE; Range: NEGATIVE; Units: mg/dL; Status: F Test: KETONE, URINE AUTO; Value: NEGATIVE; Range: NEGATIVE; Units: mg/dL; Status: F Test: UROBILINOGEN, URINE AUTO; Value: 4.0; Range: 0.0-2.0; Abnormal: Above high normal; Units: mg/dL; Status: F Test: BILIRUBIN, URINE AUTO; Value: NEGATIVE; Range: NEGATIVE; Status: F Test: NITRITE, URINE AUTO; Value: NEGATIVE; Range: NEGATIVE; Status: F Test: LEUKOCYTE ESTERASE, URINE AUTO; Value: NEGATIVE; Range: NEGATIVE; Status: F Test: BLOOD, URINE BLOOD; Value: NEGATIVE; Range: NEGATIVE; Status: F Test: WBC, URINE AUTO; Value: 0; Range: 0-3; Units: /HPF; Status: F Test: RBC, URINE AUTO; Value: 1; Range: 0-3; Units: /HPF; Status: F Test: BACTERIA, URINE AUTO; Value: NEGATIVE; Range: NEGATIVE; Status: F Test: SQUAMOUS EPITHELIAL CELL UR AU; Value: 0; Range: 0-6; Units: /HPF; Status: F Test: MUCUS, URINE; Value: SMALL; Range: NEGATIVE; Status: F Test: HYALINE CAST, URINE AUTO; Value: 0; Range: 0-1; Units: /LPF; Status: F Lab Order: Urine Culture; SPEC'M 03/24/16 13:55 Test: URINE CULTURE; Value: <EXTERNAL COMMENT eCWMed> FULL REPORT IN LAB NOTES (eCW and Medent).; Status: F Test: URINE CULTURE; Value: URINE CULTURE RESULT NO GROWTH; Status: F Lab Order: GATS (NEGATIVE STREP SCREEN); SPEC'M 03/24/16 12:36 Test: GATS CULTURE (NEG STREP SCR); Value: GATS RESULT NEGATIVE FOR STREP PYOGENES (GROUP A); Status: F Test: GATS CULTURE (NEG STREP SCR); Value: <EXTERNAL COMMENT eCWMed> FULL REPORT IN LAB NOTES (eCW and Medent).; Status: F Radiology Order: Chest, 2 View (pa\E\lat) Test: Chest, 2 View (pa\E\lat) REASON FOR EXAMINATION: fever;Cough; PA and lateral chest:; ; There are no comparisons.; ; The lung thorpe are clear. The cardiac size is normal; ; The alfredo, mediastinum, and bony thorax are unremarkable.; ; Impression:; ; Negative PA and lateral chest.; ; ; Signed by; Tariq Sagastume MD 03/24/2016 01:41 P; Radiology Order: CT ABD & PELVIS: IV and Oral Contrast Test: CT ABD & PELVIS: IV and Oral Contrast REASON FOR EXAMINATION: Abdomen Pain; CT abdomen and pelvis with IV and oral contrast:; ; There are no comparison studies.; ; The visualized lung thorpe are unremarkable.; ; The hepatic parenchyma, gallbladder, pancreas and spleen are homogeneous, normal; size and unremarkable.; ; The adrenals, kidneys and abdominal aorta are unremarkable. There is no; hydronephrosis.; ; There is no bowel distension.; ; Pelvis:; ; The appendix is not identified. However, there is no pericecal inflammation.; The bladder is unremarkable. There is no ascites or adenopathy. The pelvic; bowel loops are unremarkable.; ; Impression:; ; Essentially negative CT study of the abdomen and pelvis.; ; ; Signed by; Tariq Sagastume MD 03/24/2016 04:07 P; Outcome: 14:09 CT Study completed. ttb 15:58 Property :Personal belongings accompany Pt. ms18 16:32 Discharge ordered by Provider. br1 16:44 Discharge Assessment: Patient awake, alert and oriented x 3. No cognitive and/or ttb functional deficits noted. Patient verbalized understanding of disposition instructions. Patient awake and alert. patient administered narcotics - no. The following High Risk Discharge criteria are identified: None. Discharged to home ambulatory. Condition: good Condition: stable Condition: improved. Discharge instructions given to patient, Instructed on discharge instructions, follow up and referral plans. medication usage, diet, Demonstrated understanding of instructions, medications, clear diet, use of tylenol/ibuprofen for fevers. Pt was receptive of discharge instructions/ teaching. Prescriptions given X 1. 16:46 Patient left the ED. ttb Signatures: Dispatcher [employer] EDMS Tariq Kendrick, RN RN Shannon Burns, Mynor Trinidad lg, MD MD br1 Kenisha Heaton, RN RN jjr Iban Oglesby, COOPERATIVE EXTENSION AGENT COOPERATIVE EXTENSION AGENT dd6 Fournier, Becky, COOPERATIVE EXTENSION AGENT COOPERATIVE EXTENSION AGENT ct3 Dominic Landaverde jml1 Wendy Vazquez RN RN ttb Janeen Harkins RN RN ms18 Preeti Hummel Brittney, COOPERATIVE EXTENSION AGENT COOPERATIVE EXTENSION AGENT bnb Chart Complete MTDD
== END 2016-03-24 16:46 | disposition home or self-care (01) ==
LOC: M ED 12:03
DX: R11.2 Nausea with vomiting, unspecified (principal); R19.7 Diarrhea, unspecified
CPT/HCPCS: 36415; 71020; 74177; 80048; 80076; 81001; 83690; 85025; 86308; 87086; 87804; 87880; 96361; 96374; 99284; J2405; Q9963; Q9967

== ENCOUNTER 2018-01-25 03:06 | Emergency (ER) | payer OTHER ==
[2018-01-25] MEDS: ACETAMINOPHEN 325 MG TAB PO (04:45)
== END 2018-01-25 06:06 | disposition home or self-care (01) ==
LOC: M ED 03:06
DX: S00.93XA Contusion of unspecified part of head, initial encounter (principal); Y04.8XXA Assault by other bodily force, initial encounter; Y92.410 Unspecified street and highway as the place of occurrence of the external cause
CPT/HCPCS: 70450

== ENCOUNTER 2018-06-03 14:10 | Emergency (ER) | payer OTHER ==
[~2018-06-03] VITALS: Ht 177.8 cm; Wt 87.0 kg
[2018-06-03] MEDS ORDERED: MAPA325T3 PO (14:33)
[2018-06-03] MEDS ORDERED: MECL1CHW PO (14:33)
[2018-06-03 15:35] LABS: INFLUENZA A AMPLIFICATION NEGATIVE (NEGATIVE); INFLUENZA B AMPLIFICATION NEGATIVE (NEGATIVE)
[2018-06-03] MEDS ORDERED: IBUPROFEN 600 MG TAB PO ONE (17:00)
[2018-06-03] MEDS ORDERED: NS 1,000 ML IV ONE ×2 (17:30)
[2018-06-03] MEDS ORDERED: ONDANSETRON 4MG/2ML VIAL (J2405) IV ONE (17:30)
[2018-06-03 17:50] LABS: BASO % 0.3 % (0.0-1.0); HEMATOCRIT 44.3 % (42.0-52.0); HEMOGLOBIN 15.4 g/dl (13.5-17.5); LYMPH # 1.8 10^3/uL (1.5-6.5); LYMPH % 12.9 % (24.0-44.0); MEAN CORPUSCULAR HEMOGLOBIN 28.7 pg (27.0-33.0); MEAN CORPUSCULAR HGB CONC 34.8 g/dl (32.0-36.5); MEAN CORPUSCULAR VOLUME 82.5 fl (80.0-96.0); NEUTROPHILS # 10.2 10^3/uL (1.8-7.7); NEUTROPHILS % 72.2 % (36.0-66.0); PLATELET COUNT, AUTOMATED 209 10^3/uL (150-450); RED BLOOD COUNT 5.37 10^6/uL (4.30-6.10); WHITE BLOOD COUNT 14.2 10^3/uL (4.0-10.0)
[2018-06-03 18:12] LABS: APPEARANCE, URINE HAZY (CLEAR); BACTERIA, URINE AUTO NEGATIVE (NEGATIVE); BILIRUBIN, URINE AUTO NEGATIVE (NEGATIVE); BLOOD, URINE BLOOD NEGATIVE (NEGATIVE); COLOR, URINE AMBER (YELLOW); GLUCOSE, URINE (UA) AUTO NEGATIVE (NEGATIVE); KETONE, URINE AUTO 1+ mg/dL (NEGATIVE); LEUKOCYTE ESTERASE, URINE AUTO NEGATIVE (NEGATIVE); MUCUS, URINE SMALL (NEGATIVE); NITRITE, URINE AUTO NEGATIVE (NEGATIVE); PROTEIN, URINE AUTO 1+ mg/dL (NEGATIVE); RBC, URINE AUTO 2 /HPF (0-3); SPECIFIC GRAVITY URINE AUTO 1.028 (1.002-1.035); SQUAMOUS EPITHELIAL CELL UR AU 0 /HPF (0-6); WBC, URINE AUTO 1 /HPF (0-3)
[2018-06-03 18:23] LABS: ALBUMIN 4.2 GM/DL (3.2-5.2); ALT/SGPT 34 U/L (12-78); AMYLASE 58 U/L (25-115); BILIRUBIN,TOTAL 1.5 MG/DL (0.2-1.0); BLOOD UREA NITROGEN 17 MG/DL (7-18); C REACTIVE PROTEIN QUANTITATIV 9.86 MG/DL (0.00-0.30); CALCIUM LEVEL 8.8 MG/DL (8.5-10.1); CARBON DIOXIDE LEVEL 23 MEQ/L (21-32); CHLORIDE LEVEL 100 MEQ/L (98-107); CREATININE FOR GFR 1.25 MG/DL (0.70-1.30); GLOMERULAR FILTRATION RATE > 60.0 (>60); GLUCOSE, FASTING 93 MG/DL (70-100); LIPASE 93 U/L (73-393); POTASSIUM SERUM 3.8 MEQ/L (3.5-5.1); SODIUM LEVEL 133 MEQ/L (136-145); TOTAL PROTEIN 8.2 GM/DL (6.4-8.2)
[2018-06-03] MEDS: GASTROGRAFIN SOLUTION 30ML PO SCH ×2 (18:30→19:42)
[2018-06-03] MEDS ORDERED: ISOVUE-370 76% 100ML VIAL (Q9967) As Ordered ONE (21:28)
--- NOTE | 2018-06-03 22:47 | REPVR ---
EXAM: CT Abdomen and Pelvis With Contrast EXAM DATE/TIME: 06/03/2018 9:35 PM CLINICAL HISTORY: 23 years old, male; Pain; Abdominal pain; Localized; Right lower quadrant (rlq); Additional info: Rlq pain, fever, n/v/d TECHNIQUE: Imaging protocol: Axial computed tomography images of the abdomen and pelvis with intravenous contrast. Coronal and sagittal reformatted images were created and reviewed. Radiation optimization: All CT scans at this facility use at least one of these dose optimization techniques: automated exposure control; mA and/or kV adjustment per patient size (includes targeted exams where dose is matched to clinical indication); or iterative reconstruction. Contrast material: ISOVUE 370 Contrast volume: 100 ml Contrast route: IV COMPARISON: CT ABD PELVIS WITH CONTRAST 03/24/2016 2:03 PM FINDINGS: Lower thorax: The heart is normal in size and there is no evidence of pericardial effusion. Clear lung bases. ABDOMEN: Liver: Patchy fatty infiltration of the liver. Gallbladder and bile ducts: Normal gallbladder. Pancreas: Normal pancreas. Spleen: Normal appearing spleen. Adrenals: Normal adrenal glands. Kidneys and ureters: Normal. No hydronephrosis. Stomach and bowel: Normal. No obstruction. No mucosal thickening. Appendix: The cecum is in the right pelvis the appendix appears within the range of normal. PELVIS: Bladder: Normal urinary bladder. Reproductive: Normal prostate ABDOMEN and PELVIS: Intraperitoneal space: There is no evidence of pneumoperitoneum. There is no evidence of free fluid in the abdomen or the pelvis. Bones/joints: There is no evidence of fracture. Soft tissues: Unremarkable. Vasculature: There is opacification of the aorta which appears normal in size. Lymph nodes: Normal. No enlarged lymph nodes. IMPRESSION: 1. No evidence of obstruction. 2. No evidence of inflammation. Electronically signed by: Sidney Palafox On 06/03/2018 22:46:48 PM
[2018-06-03] MEDS ORDERED: ONDA4TAB6 PO (22:58)
[2018-06-03 23:05] VITALS: BP 116/71
== END 2018-06-03 23:12 | disposition home or self-care (01) ==
LOC: M ED 14:10
DX: B34.9 Viral infection, unspecified (principal); Z79.899 Other long term (current) drug therapy
CPT/HCPCS: 74177; 80053; 81001; 82150; 83690; 85025; 86140; 87631; 87880; 96361; 96374; 99284; J2405; Q9963; Q9967

== ENCOUNTER 2019-10-11 09:46 | Emergency (ER) | payer OTHER ==
[~2019-10-11 09:46] MED LIST: ACET325T42 PO; MECL1CHW PO; ONDA4TAB6 PO
== END 2019-10-11 11:35 | disposition home or self-care (01) ==
LOC: M ED 09:46
DX: S62.356A Nondisplaced fracture of shaft of fifth metacarpal bone, right hand, initial encounter for closed fracture (principal); M21.941 Unspecified acquired deformity of hand, right hand; W22.8XXA Striking against or struck by other objects, initial encounter; Y93.65 Activity, lacrosse and field hockey; Y92.330 Ice skating rink (indoor) (outdoor) as the place of occurrence of the external cause

== ENCOUNTER 2021-03-01 09:55 | Emergency (ER) | payer OTHER ==
[~2021-03-01] VITALS: Ht 177.8 cm; Wt 95.5 kg
[2021-03-01 14:34] VITALS: BP 113/63
== END 2021-03-01 14:45 | disposition home or self-care (01) ==
LOC: M ED 09:55
DX: U07.1 COVID-19 (principal)